=== PATIENT | female | born 1990 | race American Indian/Alaskan Native ===

== ENCOUNTER 2016-11-07 20:45 | Emergency (ER) | payer BC ==
[2016-11-07 21:22] LABS: Basophils % (Auto) 0.8 % (0.0-1.8); Eosinophils % (Auto) 3.4 % (0.0-4.3); Hematocrit 36.9 % (30.3-42.9); Hemoglobin 12.2 gm/dl (10.1-14.3); Mean Corpuscular HGB Conc 33 % (30-34); Mean Corpuscular Volume 77 fl (79-97); Platelet Count 296 K/mm3 (140-440); Red Blood Count 4.77 M/mm3 (3.65-5.03); Red Cell Distribution Width 15.4 % (13.2-15.2); White Blood Count 6.6 K/mm3 (4.5-11.0)
[2016-11-07 21:42] LABS: Mean Corpuscular Hemoglobin 26 pg (28-32)
[2016-11-07 21:43] LABS: Bacteria,Urine 1+ /HPF (Negative); Bilirubin,Urine NEG (Negative); Blood,Urine NEG (Negative); Ketones,Urine NEG (Negative); Leukocyte Esterase,Urine MOD (Negative); Mucus,Urine FEW /HPF; Nitrite,Urine NEG (Negative); Protein,Urine <15 mg/dL mg/dL (Negative); Urobilinogen,Urine < 2.0 mg/dL (<2.0)
[2016-11-07 21:45] LABS: Alanine Aminotransferase 8 units/L (7-56); Albumin 3.6 g/dL (3.9-5); Alkaline Phosphatase 85 units/L (35-129); Anion Gap 15 mmol/L; BUN/Creatinine Ratio 16.25; Blood Urea Nitrogen 13 mg/dL (7-17); Calcium 8.6 mg/dL (8.4-10.2); Carbon Dioxide 25 mmol/L (22-30); Chloride 98.7 mmol/L (98-107); Glucose 82 mg/dL (65-100); Lipase 32 units/L (13-60); Potassium 3.7 mmol/L (3.6-5.0); Sodium 135 mmol/L (137-145); Total Protein 7.1 g/dL (6.3-8.2)
[2016-11-08 01:56] VITALS: BP 117/86
--- NOTE | 2016-11-08 11:53 | Emergency Department Report ---
HPI - General Chief Complaint: Abdominal Pain Time Seen by Provider: 11/08/16 11:30 - [facility] HPI: Room 25 The patient is a 26-year-old female presenting with a chief complaint of bilateral lower quadrant abdominal pain. Patient states she suffered from intermittent bilateral lower quadrant abdominal pain for years. She states at one point she was diagnosed as having ovarian cysts/ovarian cancer but this was a misdiagnosis. The patient states she has not seen a physician since 2013 for her pain. Patient states her symptoms began 2 days ago with pain in the bilateral lower quadrants patient denies nausea and vomiting but does admit to diarrhea for the past 5 days. Patient admits to dysuria but denies hematuria. Patient states she is uncertain if she is having vaginal discharge because she does not look. Patient denies any history of fever Location: Bilateral lower quadrants Duration: Intermittent times years Quality: Pain Severity: Moderate Modifying factors: [see above] Context: [see above] Mode of transportation: [not driving] ED Past Medical Hx - Past Medical History Previous Medical History?: No Additional medical history: History of ovarian cyst - Surgical History Past Surgical History?: Yes Additional Surgical History: hernia. d&C - Family History Family history: no significant - Social History Smoking Status: Never Smoker Substance Use Type: Alcohol, Marijuana - Medications Home Medications: Home Medications Medication Instructions Recorded Confirmed Last Taken Type Ibuprofen [Motrin 800 MG tab] 800 mg PO Q8HR PRN #20 tablet 11/08/16 Unknown Rx traMADol [Ultram] 50 mg PO Q6HR PRN #10 tablet 11/08/16 Unknown Rx ED Review of Systems ROS: Stated complaint: BILATERAL FLANK PAIN/DIARREAH Other details as noted in HPI Comment: All other systems reviewed and negative Constitutional: denies: chills, fever Eyes: denies: eye pain, eye discharge, vision change ENT: denies: ear pain, throat pain Respiratory: denies: cough, shortness of breath, wheezing Cardiovascular: denies: chest pain, palpitations Endocrine: no symptoms reported Gastrointestinal: abdominal pain. denies: nausea, vomiting Genitourinary: dysuria. denies: hematuria Musculoskeletal: denies: back pain, joint swelling, arthralgia Skin: denies: rash, lesions Neurological: denies: headache, weakness, paresthesias Psychiatric: denies: anxiety, depression Hematological/Lymphatic: denies: easy bleeding, easy bruising Physical Exam - Physical Exam Vital Signs: Vital Signs 11/07/16 11/08/16 20:53 01:55 Temperature 98.4 F 98.6 F Pulse Rate 76 60 Respiratory 18 18 Rate Blood Pressure 100/62 117/86 O2 Sat by Pulse 100 100 Oximetry Physical Exam: GENERAL: The patient is well-developed well-nourished female lying on stretcher using cell phone not appearing to be in acute distress. [] HEENT: Normocephalic. Atraumatic. Extraocular motions are intact. Patient has moist mucous membranes. NECK: Supple. Trachea midline CHEST/LUNGS: Clear to auscultation. There is no respiratory distress noted. HEART/CARDIOVASCULAR: Regular. There is no tachycardia. There is no gallop rub or murmur. ABDOMEN: Abdomen is soft, nontender. Patient has normal bowel sounds. There is no abdominal distention. SKIN: There is no rash. There is no edema. There is no diaphoresis. NEURO: The patient is awake, alert, and oriented. The patient is cooperative. The patient has normal speech MUSCULOSKELETAL: There is no CVA tenderness. There is no evidence of acute injury. PELVIC: Thick white discharge with slightly foul odor. ED Course Vital Signs 11/07/16 11/08/16 20:53 01:55 Temperature 98.4 F 98.6 F Pulse Rate 76 60 Respiratory 18 18 Rate Blood Pressure 100/62 117/86 O2 Sat by Pulse 100 100 Oximetry ED Medical Decision Making - Lab Data Result diagrams: 11/07/16 21:01 11/07/16 21:01 Laboratory Tests 11/07/16 11/07/16 11/07/16 21:01 21:01 21:01 WBC 6.6 RBC 4.77 Hgb 12.2 Hct 36.9 MCV 77 L MCH 26 L MCHC 33 RDW 15.4 H Plt Count 296 Lymph % (Auto) 37.5 H Greenlee % (Auto) 10.2 H Eos % (Auto) 3.4 Baso % (Auto) 0.8 Lymph # 2.5 Greenlee # 0.7 Eos # 0.2 Baso # 0.0 Seg Neutrophils % 48.1 Seg Neutrophils # 3.2 Sodium 135 L Potassium 3.7 Chloride 98.7 Carbon Dioxide 25 Anion Gap 15 BUN 13 Creatinine 0.8 Estimated GFR > 60 BUN/Creatinine Ratio 16.25 Glucose 82 Calcium 8.6 Total Bilirubin 0.30 AST 11 ALT 8 Alkaline Phosphatase 85 Total Protein 7.1 Albumin 3.6 L Albumin/Globulin Ratio 1.0 Lipase 32 HCG, Qual Negative Urine Color Urine Turbidity Urine pH Ur Specific Parker Urine Protein Urine Glucose (UA) Urine Ketones Urine Blood Urine Nitrite Urine Bilirubin Urine Urobilinogen Ur Leukocyte Esterase Urine WBC (Auto) Urine RBC (Auto) U Epithel Cells (Auto) Urine Bacteria (Auto) Urine Mucus 11/07/16 21:20 WBC RBC Hgb Hct MCV MCH MCHC RDW Plt Count Lymph % (Auto) Greenlee % (Auto) Eos % (Auto) Baso % (Auto) Lymph # Greenlee # Eos # Baso # Seg Neutrophils % Seg Neutrophils # Sodium Potassium Chloride Carbon Dioxide Anion Gap BUN Creatinine Estimated GFR BUN/Creatinine Ratio Glucose Calcium Total Bilirubin AST ALT Alkaline Phosphatase Total Protein Albumin Albumin/Globulin Ratio Lipase HCG, Qual Urine Color Yellow Urine Turbidity Clear Urine pH 5.0 Ur Specific Parker 1.017 Urine Protein <15 mg/dl Urine Glucose (UA) Neg Urine Ketones Neg Urine Blood Neg Urine Nitrite Neg Urine Bilirubin Neg Urine Urobilinogen < 2.0 Ur Leukocyte Esterase Mod Urine WBC (Auto) 6.0 Urine RBC (Auto) 5.0 U Epithel Cells (Auto) 8.0 Urine Bacteria (Auto) 1+ Urine Mucus Few - Radiology Data Radiology results: report reviewed (CT abdomen and pelvis), image reviewed (CT abdomen and pelvis) CT abdomen and pelvis (read by radiologist) no acute CT abnormality with very sensitive findings. Approximately 3.5 cm anterior fundal fibroid. Small bilateral adnexal/ovarian follicles/cyst measuring up to approximately 1.6 cm. - Differential Diagnosis ovarian cyst, appendicitis, enteritis, urethritis, bacterial vaginosis Critical care attestation.: If time is entered above; I have spent that time in minutes in the direct care of this critically ill patient, excluding procedure time. ED Disposition Clinical Impression: Pelvic pain, Ovarian cyst, bilateral, Uterine fibroid, Dysuria Disposition: DISCHARGED TO HOME OR SELFCARE Is pt being admited?: No Does the pt Need Aspirin: No Condition: Stable Instructions: Abdominal Pain (ED) Additional Instructions: Return to the emergency department immediately should you develop worsening symptoms, fever, inability to tolerate food or liquid or any other concerns. Prescriptions: Ibuprofen [Motrin 800 MG tab] 800 mg PO Q8HR PRN #20 tablet PRN Reason: Pain traMADol [Ultram] 50 mg PO Q6HR PRN #10 tablet PRN Reason: Pain Referrals: DAVION MARTIN MD [Staff Physician] - 3-5 Days (Dr. Martin is a primary physician. Please follow up with him to be established as a patient) JULIET SAMANO MD [Staff Physician] - 3-5 Days (Dr. Samano is an [employer]. Please follow up with her to be established as a patient) Time of Disposition: 13:52
[2016-11-08] MEDS ORDERED: NACL ONE (12:17)
--- NOTE | 2016-11-08 13:12 | Cat Scan Report ---
CT ABDOMEN AND PELVIS WITH CONTRAST INDICATION: Bilateral lower quadrant abdominal pain. COMPARISON: None similar. FINDINGS: Abdomen and pelvis CT performed following intravenous administration of 100 cc of Omnipaque 300. LUNG BASES: Mild nonspecific distal esophageal wall prominence/thickening, not excluded for gastroesophageal reflux and/or hiatal hernia, amongst others. ABDOMEN: Liver, spleen, gallbladder, pancreas, adrenals, nonaneurysmal abdominal aorta, IVC and kidneys within normal limits. Nonopacified GI tract nonobstructive. Normal appendix with an approximately 5 mm appendicolith incidentally noted as on axial image 276, series 2. Mild to moderate ascending and transverse colon stool/possible constipation. No ascites or significant adenopathy. PELVIS: Approximately 3.5 cm anterior fundal fibroid, axial image 302, series 2. Small bilateral adnexal/ovarian follicles/cysts measuring up to approximately 1.6 cm. Mild rectosigmoid stool. No free fluid or significant adenopathy. Unremarkable bones. CONCLUSION: No acute CT abnormality with various incidental findings, as above. Please correlate. Thank you for the opportunity to participate in this patient's care.
[2016-11-08] MEDS ORDERED: ZITHROMAX PO ONE (13:50)
[2016-11-08] MEDS ORDERED: ROCEPHIN IM ONE (13:50)
[2016-11-08] MEDS ORDERED: XYLOCAINE 1% MPF 5 mL INFILTRATI ONE (13:50)
== END 2016-11-08 14:30 | disposition home or self-care (01) ==
LOC: ED 20:45
DX: N83.202 Unspecified ovarian cyst, left side (principal); N83.201 Unspecified ovarian cyst, right side; R10.2 Pelvic and perineal pain; D25.9 Leiomyoma of uterus, unspecified; R30.0 Dysuria; F12.10 Cannabis abuse, uncomplicated
CPT/HCPCS: 36415; 74177; 80053; 81001; 83690; 84703; 85025; 87210; 87591; 96372; 99284; J0696; Q9967

== ENCOUNTER 2017-07-27 07:55 | Emergency (ER) | payer SELFPAY ==
[2017-07-27] MEDS ORDERED: TESSALON PERLES PO ONE (12:17)
[2017-07-27] MEDS ORDERED: TORADOL IM ONE (12:17)
[2017-07-27] MEDS ORDERED: MOTRIN PO ONE (12:45)
[2017-07-27] MEDS ORDERED: ZOFRAN ODT PO ONE (12:45)
--- NOTE | 2017-07-27 12:58 | Emergency Department Report ---
- General Chief Complaint: Upper Respiratory Infection Stated Complaint: FLU Time Seen by Provider: 07/27/17 12:16 Source: patient Mode of arrival: Ambulatory Limitations: No Limitations - History of Present Illness Initial Comments: 27-year-old female past medical history obesity presents with complaint of 5 days of sore throat cough fever chills. Patient is awake alert and oriented 3. Denies nausea vomiting. Denies flank pain. Does report some increased urinary frequency and abnormal smelling urine. Denies vaginal discharge. MD Complaint: fever, rhinorrhea, nasal congestion Onset/Timin -: days(s) Severity: mild Severity scale (0 -10): 5 Consistency: intermittent Context: sick contacts Associated Symptoms: fever, cough, dysuria Treatments Prior to Arrival: none - Related Data Previous Rx's Medication Instructions Recorded Last Taken Type Ibuprofen [Motrin 800 MG tab] 800 mg PO Q8HR PRN #20 tablet 11/08/16 Unknown Rx traMADol [Ultram] 50 mg PO Q6HR PRN #10 tablet 11/08/16 Unknown Rx Ibuprofen [Motrin] 800 mg PO Q8HR PRN #30 tablet 07/27/17 Unknown Rx Nitrofurantoin Monohyd/M-Cryst 100 mg PO BID #14 capsule 07/27/17 Unknown Rx [Macrobid 100 mg Capsule] Ondansetron [Zofran Odt] 4 mg PO Q8HR PRN #12 tab.rapdis 07/27/17 Unknown Rx Phenylephrine/Dm/Acetaminop/GG 10 ml PO Q6H PRN #1 liquid 07/27/17 Unknown Rx [Mucinex Ssva-Qpz-Rrykitleip Lq] Allergies Allergy/AdvReac Type Severity Reaction Status Date / Time No Known Allergies Allergy Verified 05/14/14 14:31 ED Review of Systems ROS: Stated complaint: FLU Other details as noted in HPI Constitutional: fever, malaise. denies: chills Eyes: denies: eye pain, eye discharge, vision change ENT: denies: ear pain, throat pain Respiratory: cough. denies: shortness of breath, wheezing Cardiovascular: denies: chest pain, palpitations Endocrine: no symptoms reported Gastrointestinal: denies: abdominal pain, nausea, diarrhea Genitourinary: dysuria. denies: urgency, discharge Musculoskeletal: denies: back pain, joint swelling, arthralgia Skin: denies: rash, lesions Neurological: denies: headache, weakness, paresthesias Psychiatric: denies: anxiety, depression Hematological/Lymphatic: denies: easy bleeding, easy bruising ED Past Medical Hx - Past Medical History Previous Medical History?: No Additional medical history: History of ovarian cyst - Surgical History Past Surgical History?: No Additional Surgical History: hernia. d&C - Social History Smoking Status: Never Smoker Substance Use Type: None - Medications Home Medications: Home Medications Medication Instructions Recorded Confirmed Last Taken Type Ibuprofen [Motrin 800 MG tab] 800 mg PO Q8HR PRN #20 tablet 11/08/16 Unknown Rx traMADol [Ultram] 50 mg PO Q6HR PRN #10 tablet 11/08/16 Unknown Rx Ibuprofen [Motrin] 800 mg PO Q8HR PRN #30 tablet 07/27/17 Unknown Rx Nitrofurantoin Monohyd/M-Cryst 100 mg PO BID #14 capsule 07/27/17 Unknown Rx [Macrobid 100 mg Capsule] Ondansetron [Zofran Odt] 4 mg PO Q8HR PRN #12 tab.rapdis 07/27/17 Unknown Rx Phenylephrine/Dm/Acetaminop/GG 10 ml PO Q6H PRN #1 liquid 07/27/17 Unknown Rx [Mucinex Tpbm-Yss-Rmriciwspm Lq] ED Physical Exam - General Limitations: No Limitations General appearance: alert, in no apparent distress - Head Head exam: Present: atraumatic, normocephalic - Eye Eye exam: Present: normal appearance - ENT ENT exam: Present: mucous membranes moist - Neck Neck exam: Present: normal inspection - Respiratory Respiratory exam: Present: normal lung sounds bilaterally. Absent: respiratory distress - Cardiovascular Cardiovascular Exam: Present: regular rate, normal rhythm. Absent: systolic murmur, diastolic murmur, rubs, gallop - GI/Abdominal GI/Abdominal exam: Present: soft, normal bowel sounds - Extremities Exam Extremities exam: Present: normal inspection - Back Exam Back exam: Present: normal inspection - Neurological Exam Neurological exam: Present: alert, oriented X3 - Psychiatric Psychiatric exam: Present: normal affect, normal mood - Skin Skin exam: Present: warm, dry, intact, normal color. Absent: rash ED Course Vital Signs 07/27/17 07/27/17 07/27/17 07:57 12:53 14:08 Temperature 99.1 F 98 F Pulse Rate 89 86 Respiratory 18 18 16 Rate Blood Pressure 104/57 Blood Pressure 122/78 [Right] O2 Sat by Pulse 97 98 Oximetry ED Medical Decision Making - Medical Decision Making A/P: UTI, viral syndrome 1- empiric treatment with Macrobid 2-symptomatic treatment for URI symptoms 3-follow up primary care doctor 4- vital signs stable for discharge, patient tolerating by mouth fluid and food without difficulty before discharge. Patient is afebrile. Critical care attestation.: If time is entered above; I have spent that time in minutes in the direct care of this critically ill patient, excluding procedure time. ED Disposition Clinical Impression: Flu-like symptoms Urinary tract infection Qualifiers: Urinary tract infection type: acute cystitis Hematuria presence: without hematuria Qualified Code(s): N30.00 - Acute cystitis without hematuria Disposition: TO HOME OR SELFCARE Is pt being admited?: No Does the pt Need Aspirin: No Condition: Stable Instructions: Urinary Tract Infection in Women (ED), Influenza (ED), Viral Syndrome (ED) Prescriptions: Ibuprofen [Motrin] 800 mg PO Q8HR PRN #30 tablet PRN Reason: Pain Nitrofurantoin Monohyd/M-Cryst [Macrobid 100 mg Capsule] 100 mg PO BID #14 capsule Ondansetron [Zofran Odt] 4 mg PO Q8HR PRN #12 tab.rapdis PRN Reason: Nausea Phenylephrine/Dm/Acetaminop/GG [Mucinex Mrph-Bvo-Hxspksxmql Lq] 10 ml PO Q6H PRN #1 liquid PRN Reason: Cough Referrals: DEBORAH RUBI MD [Primary Care Provider] - 3-5 Days [facility] [Outside] - 3-5 Days [facility] [Outside] - 3-5 Days Forms: Work/School Release Form(ED) Time of Disposition: 13:54
[2017-07-27 13:40] LABS: Bacteria,Urine 3+ /HPF (Negative); Bilirubin,Urine NEG (Negative); Blood,Urine NEG (Negative); Color,Urine Yellow (Yellow); Mucus,Urine 3+ /HPF; Nitrite,Urine POS (Negative); Protein,Urine <15 mg/dL mg/dL (Negative); Urobilinogen,Urine < 2.0 mg/dL (<2.0)
[2017-07-27 13:41] LABS: HCG Qualitative,Urine Negative (Negative)
[2017-07-27 14:09] VITALS: BP 122/78
== END 2017-07-27 14:08 | disposition home or self-care (01) ==
LOC: ED 07:55
DX: N30.00 Acute cystitis without hematuria (principal); J02.9 Acute pharyngitis, unspecified; R05 Cough
CPT/HCPCS: 81001; 81025; 99283; Q0162

== ENCOUNTER 2019-05-07 17:03 | Emergency (ER) | payer OTHER ==
[2019-05-07 18:03] VITALS: BP 113/66
--- NOTE | 2019-05-07 18:06 | Emergency Department Report ---
ED ENT HPI - General Chief complaint: Dental/Oral Stated complaint: ABSCESS GUM/GLAND SWOLLEN Time Seen by Provider: 05/07/19 18:01 Source: patient Mode of arrival: Ambulatory Limitations: No Limitations - History of Present Illness Initial comments: This is a 29-year-old female nontoxic well in appearance with no signs of distress presents to the ED with complaint of toothache. Patient denies any facial swelling. Denies following up with a dentist. Denies any fever, chills, headache, nausea, vomiting, chest pain or SOB. Denies any other complaints. Denies any allergies. MD complaint: tooth pain -: week(s) Location: tooth # 1 - pain here Severity: mild Severity scale (0 -10): 8 Quality: aching Consistency: constant Improves with: none Worsens with: none Context- Dental: history of dental caries, poor dental care Associated Symptoms: gum swelling, toothache. denies: fever, cough, pain with swallowing, sore throat, tinnitus, hearing loss, discharge from ear, rhinorrhea - Related Data Previous Rx's Medication Instructions Recorded Last Taken Type Ibuprofen [Motrin 800 MG tab] 800 mg PO Q8HR PRN #20 tablet 11/08/16 Unknown Rx traMADol [Ultram] 50 mg PO Q6HR PRN #10 tablet 11/08/16 Unknown Rx Ibuprofen [Motrin] 800 mg PO Q8HR PRN #30 tablet 07/27/17 Unknown Rx Nitrofurantoin Monohyd/M-Cryst 100 mg PO BID #14 capsule 07/27/17 Unknown Rx [Macrobid 100 mg Capsule] Ondansetron [Zofran Odt] 4 mg PO Q8HR PRN #12 tab.rapdis 07/27/17 Unknown Rx Phenylephrine/Dm/Acetaminop/GG 10 ml PO Q6H PRN #1 liquid 07/27/17 Unknown Rx [Mucinex Xpiv-Ken-Vhzrmbmkkl Lq] Acetaminophen/Codeine [Tylenol 1 tab PO Q6H PRN #12 tab 05/07/19 Unknown Rx /Codeine # 3 tab] Amoxicillin [Amoxicillin TAB] 875 mg PO BID #20 tablet 05/07/19 Unknown Rx Chlorhexidine Mouthwash [Peridex] 15 ml MM BID #1 bottle 05/07/19 Unknown Rx Allergies Allergy/AdvReac Type Severity Reaction Status Date / Time No Known Allergies Allergy Verified 05/14/14 14:31 ED Dental HPI - General Chief complaint: Dental/Oral Stated complaint: ABSCESS GUM/GLAND SWOLLEN Time Seen by Provider: 05/07/19 18:01 Source: patient Mode of arrival: Ambulatory Limitations: No Limitations - Related Data Previous Rx's Medication Instructions Recorded Last Taken Type Ibuprofen [Motrin 800 MG tab] 800 mg PO Q8HR PRN #20 tablet 11/08/16 Unknown Rx traMADol [Ultram] 50 mg PO Q6HR PRN #10 tablet 11/08/16 Unknown Rx Ibuprofen [Motrin] 800 mg PO Q8HR PRN #30 tablet 07/27/17 Unknown Rx Nitrofurantoin Monohyd/M-Cryst 100 mg PO BID #14 capsule 07/27/17 Unknown Rx [Macrobid 100 mg Capsule] Ondansetron [Zofran Odt] 4 mg PO Q8HR PRN #12 tab.rapdis 07/27/17 Unknown Rx Phenylephrine/Dm/Acetaminop/GG 10 ml PO Q6H PRN #1 liquid 07/27/17 Unknown Rx [Mucinex Ptem-Wjs-Yyhnunuipp Lq] Acetaminophen/Codeine [Tylenol 1 tab PO Q6H PRN #12 tab 05/07/19 Unknown Rx /Codeine # 3 tab] Amoxicillin [Amoxicillin TAB] 875 mg PO BID #20 tablet 05/07/19 Unknown Rx Chlorhexidine Mouthwash [Peridex] 15 ml MM BID #1 bottle 05/07/19 Unknown Rx Allergies Allergy/AdvReac Type Severity Reaction Status Date / Time No Known Allergies Allergy Verified 05/14/14 14:31 ED Review of Systems ROS: Stated complaint: ABSCESS GUM/GLAND SWOLLEN Other details as noted in HPI Constitutional: denies: chills, fever Eyes: denies: eye pain, eye discharge, vision change ENT: dental pain. denies: ear pain, throat pain Respiratory: denies: cough, shortness of breath, wheezing Cardiovascular: denies: chest pain, palpitations Endocrine: no symptoms reported Gastrointestinal: denies: abdominal pain, nausea, diarrhea Genitourinary: denies: urgency, dysuria, discharge Musculoskeletal: denies: back pain, joint swelling, arthralgia Skin: denies: rash, lesions Neurological: denies: headache, weakness, paresthesias Psychiatric: denies: anxiety, depression Hematological/Lymphatic: denies: easy bleeding, easy bruising ED Past Medical Hx - Past Medical History Previous Medical History?: Yes Additional medical history: History of ovarian cyst. Hernia - Surgical History Past Surgical History?: Yes Additional Surgical History: hernia. d&C - Social History Smoking Status: Never Smoker Substance Use Type: None - Medications Home Medications: Home Medications Medication Instructions Recorded Confirmed Last Taken Type Ibuprofen [Motrin 800 MG tab] 800 mg PO Q8HR PRN #20 tablet 11/08/16 Unknown Rx traMADol [Ultram] 50 mg PO Q6HR PRN #10 tablet 11/08/16 Unknown Rx Ibuprofen [Motrin] 800 mg PO Q8HR PRN #30 tablet 07/27/17 Unknown Rx Nitrofurantoin Monohyd/M-Cryst 100 mg PO BID #14 capsule 07/27/17 Unknown Rx [Macrobid 100 mg Capsule] Ondansetron [Zofran Odt] 4 mg PO Q8HR PRN #12 tab.rapdis 07/27/17 Unknown Rx Phenylephrine/Dm/Acetaminop/GG 10 ml PO Q6H PRN #1 liquid 07/27/17 Unknown Rx [Mucinex Gsfl-Wzs-Urdjzlyoix Lq] Acetaminophen/Codeine [Tylenol 1 tab PO Q6H PRN #12 tab 05/07/19 Unknown Rx /Codeine # 3 tab] Amoxicillin [Amoxicillin TAB] 875 mg PO BID #20 tablet 05/07/19 Unknown Rx Chlorhexidine Mouthwash [Peridex] 15 ml MM BID #1 bottle 05/07/19 Unknown Rx ED Physical Exam - General Limitations: No Limitations General appearance: alert, in no apparent distress - Head Head exam: Present: atraumatic, normocephalic - Expanded ENT Exam Expanded Ear exam: Present: normal external inspection Mouth exam: Present: normal external inspection. Absent: drooling, trismus Teeth exam: Present: dental caries, fractured tooth #, dental tenderness #, gingival enlargement, other (no facial swelling. no abscess) Throat exam: Positive: normal inspection, other (uvula midline). Negative: tonsillar erythema, tonsillomegaly, tonsillar exudate, R peritonsillar mass, L peritonsillar mass - Neck Neck exam: Present: normal inspection, full ROM. Absent: tenderness, meningismus, lymphadenopathy - Extremities Exam Extremities exam: Present: full ROM - Back Exam Back exam: Present: full ROM - Neurological Exam Neurological exam: Present: alert, oriented X3, normal gait - Psychiatric Psychiatric exam: Present: normal affect, normal mood - Skin Skin exam: Present: warm, dry, intact, normal color. Absent: rash ED Course - Reevaluation(s) Reevaluation #1: 05/07/19 18:04 Patient is speaking in full sentences with no signs of distress noted. ED Medical Decision Making - Medical Decision Making Patient was instructed to Follow-up with a dentist doctor in 3-5 days or if symptoms worsen and continue return to emergency room as soon as possible. At time of discharge, the patient does not seem toxic or ill in appearance. No acute signs of distress noted. Patient agrees to discharge treatment plan of care. No further questions noted by the patient. Critical care attestation.: If time is entered above; I have spent that time in minutes in the direct care of this critically ill patient, excluding procedure time. ED Disposition Clinical Impression: Dental caries, Gingivitis Disposition: - TO HOME OR SELFCARE Is pt being admited?: No Does the pt Need Aspirin: No Condition: Stable Instructions: Dental Caries (ED), Gingivitis (ED), Acetaminophen/Codeine (By mouth) Additional Instructions: Follow-up with a dentist doctor in 3-5 days or if symptoms worsen and continue return to emergency room as soon as possible. Prescriptions: Amoxicillin [Amoxicillin TAB] 875 mg PO BID #20 tablet Chlorhexidine Mouthwash [Peridex] 15 ml MM BID #1 bottle Acetaminophen/Codeine [Tylenol /Codeine # 3 tab] 1 tab PO Q6H PRN #12 tab PRN Reason: Pain , Severe (7-10) Referrals: PRIMARY CARE, [Referring] - 3-5 Days SANJAY SHARP MD [Staff Physician] - 3-5 Days [facility] [Outside] - 3-5 Days Forms: Work/School Release Form(ED)
== END 2019-05-07 18:19 | disposition home or self-care (01) ==
LOC: ED 17:03
DX: K02.9 Dental caries, unspecified (principal); K05.10 Chronic gingivitis, plaque induced; Z79.899 Other long term (current) drug therapy